=== PATIENT | female | born 1995 | race Hispanic/Latino ===

== ENCOUNTER 2018-02-05 16:34 | Emergency (ER) | payer SELFPAY ==
[2018-02-05 17:05] LABS: Bilirubin Negative (Negative); Blood, Urine Negative (Negative); Clarity CLOUDY (Clear); Glucose, Urine (Dipstick) Negative (Negative); Leukocyte Small (Negative); Nitrite Negative (Negative); Protein, Urine (Dipstick) Negative (Neg-Trace); Specific Gravity, Urine 1.031 (1.002-1.036)
[2018-02-05 17:06] LABS: Bacteria/HPF 2+ HPF (None Seen); Pathc Cast-AUWi Flag 1.88 (0-2.49)
[2018-02-05 17:08] LABS: Pregnancy Test - Urine (BHCG) POSITIVE (Negative); Pregu Control Background? CLEAR/WHITE (CLR/WHITE); Pregu Control Bar Appear? YES (CONTROL BAR); Specific Gravity 1.031 (1.002-1.036)
[2018-02-05 17:18] LABS: Hyaline Casts/LPF 0-3 HYALINE CAST LPF (0-3 Hyaline); RBC/HPF None Seen HPF (0-3)
[2018-02-05 17:36] LABS: #Lymphocytes 1.6 thou/uL (1.20-3.40); #Monocytes 0.5 thou/uL (0.11-0.59); #Neutrophils 8.4 thou/uL (1.40-6.50); %Basophils 0.3 % (0.0-1.0); %Eosinophils 0.4 % (0.0-10.0); %Lymphocytes 15.4 % (28.0-48.0); %Monocytes 4.8 % (0.0-4.0); %Neutrophils 79.1 % (31.0-61.0); Hemoglobin 12.9 g/dL (12.0-16.0); Mean Corpuscular HGB CONC 34.3 g/dL (32.0-36.0); Mean Corpuscular Hemoglobin 28.5 pg (25.0-35.0); Mean Platelet Volume 7.8 fL (7.4-10.4); Platelet Count 227 thou/uL (130-400); RBC Distribution Width 13.6 % (11.5-14.5); Red Blood Cell (RBC) Count 4.54 mill/uL (4.00-5.20); White Blood Cell (WBC) Count 10.6 thou/uL (4.8-10.8)
[2018-02-05 17:57] LABS: ALT (SGPT) 11 U/L (8-55); AST (SGOT) 10 U/L (5-34); Albumin 4.2 g/dL (3.5-5.0); Alkaline Phosphatase 77 U/L (40-150); Anion Gap 9 mmol/L (10-20); BUN (Urea Nitrogen) 9 mg/dL (7.0-18.7); Bilirubin, Total 0.4 mg/dL (0.2-1.2); Calc. Creatinine Clearance 0 mL/min (70-130); Calcium 9.5 mg/dL (7.8-10.44); Carbon Dioxide 25 mmol/L (22-29); Chloride 106 mmol/L (98-107); Estimated GFR-MDRD Greater than 90; Globulin 3.1 g/dL (2.4-3.5); Glucose 86 mg/dL (70-105); Lipase 11 U/L (8-78); Potassium 3.9 mmol/L (3.5-5.1); Protein, Total 7.3 g/dL (6.0-8.3); Sodium 136 mmol/L (136-145)
--- NOTE | 2018-02-05 19:23 | ULT ---
OBSTETRIC SONOGRAM TRANSABDOMINAL IMAGING WITH DUPLEX EVALUATION 02/05/18 HISTORY: Pelvic pain. early . FINDINGS: The urinary bladder is unremarkable. Uterus measures 9.7 cm and contains a gestational sac. Heart mot ion is demonstrated at 127 beats per minute. Measurements correlate with 7 weeks, 0 days gestational age. No free fluid within the pelvis. Each ovary is 3.3 cm in length and has a normal appearance with good color and spectral doppler flow. IMPRESSION: Single viable intrauterine gestation. Estimated gestational age of 7 weeks, 0 days. No evidence of co mplication. POS: [facility]
== END 2018-02-05 20:30 | disposition home or self-care (01) ==
LOC: ERS 16:34
DX: O99.89 Other specified diseases and conditions complicating pregnancy, childbirth and the puerperium (principal); O99.511 Diseases of the respiratory system complicating pregnancy, first trimester; F17.210 Nicotine dependence, cigarettes, uncomplicated; O99.331 Smoking (tobacco) complicating pregnancy, first trimester; J45.909 Unspecified asthma, uncomplicated; Z3A.01 Less than 8 weeks gestation of pregnancy
CPT/HCPCS: 36415; 76856; 80053; 81003; 81015; 81025; 83690; 84702; 85025; 87086; 93976

== ENCOUNTER 2018-06-01 20:06 | Day surgery (SDC) | payer OTHER ==
[2018-06-01 21:00] VITALS: BMI 44.4
--- NOTE | 2018-06-01 22:31 | PDOC.FPROB ---
FMR OB H&P: HPI - History of Present Illness Chief Complaint: No movement History of Present Illness: This is a 23 yo at 24.0 wks by LMP c/w 11wk US (SANGITA 09/22/18) who presents with a cc of lack of baby moving. She states this has been going on for 2 days. She tried lying down to feel the baby move but this did not help. She does report movement prior to this episode. She also reports falling in the shower earlier today and landing on her abdomen. She denies vaginal bleeding or discharge but does report some fluid in her panties today. She reports this being clear and small in amount. She denies dysuria or vaginal itching. FMR OB H&P: Current - Care : 1 Para: 0 Gestational age: 24.0 Due date: 09/22/18 Dating Criteria: LMP/11wk US - OB Labs Blood type: unknown RH: unknown Antibody Screen: unknown HIV: unknown RPR: unknown HepBsAg: unknown Quad screen: unknown Gonorrhea: unknown Chlamydia: unknown GBS: unknown FMR OB H&P: History - Past Medical History PMH: none - OB History OB History: none - Surgical History Sx History: none - Social History Social History: Denies MARY FMR OB H&P: Medications - Current Home Medications: Medication Instructions Recorded Confirmed Type Vits96/Iron Fum/Folic 1 tab PO DAILY 06/01/18 06/01/18 History [ Tablet] Allergies/Adverse Reactions: Allergies Allergy/AdvReac Type Severity Reaction Status Date / Time No Known Allergies Allergy Unverified 06/01/18 20:54 FMR OB H&P: ROS - Review of Systems General: denies: fever/chills, weight/appetite/sleep changes Eyes: denies: eye pain, vision changes ENT: denies: nasal congestion, rhinorrhea Cardiovascular: denies: chest pain, palpitation Gastrointestinal: denies: abdominal pain, indigestion, bloating Genitourinary (Female): denies: incontinence, dysuria Musculoskeletal: denies: pain, stiffness, tenderness Neurologic: denies: numbness, syncope Integumentary: denies: itching, rash Breast: denies: lumps, bumps, pain/tenderness Psychological: denies: depression, anxiety FMR OB H&P: Vital Signs - Heart Tones Baseline: 130 Variability: moderate Acceleration: present Deceleration: absent FMR OB H&P: Physical Exam - Physical Exam General: NAD, awake, alert and oriented HEENT: normocephalic and atraumatic, MMM Neck: trachea midline, no JVD Heart: RRR, normal S1/S2, no murmurs/rubs/gallops General: CTAB, no respiratory distress, good air movement Abdomen: soft, non-tender, bowel sound present, other (obese) Musculoskeletal: normal gait and station, pulses present Skin: no rash, good tugor FMR OB H&P: A/P Disposition: This is a 23 yo at 24.0 wks by LMP c/w 11wk US (SANGITA 09/22/18) Second trimester with concern of decreased movement -Monitor FHTs -VP3 due to slight discharge -No concern for LOF at this point Pt was monitored and was found to have regular movement picked up on NST. NST was reactive and reassuring. No contractions. Family was reassured by the babies movement. Family was given return precautions and instructed that they would receive a call if the VP3 came back positive. All questions were answered at the time of discharge. Discussion: Date/Time: 06/01/183 This H&P was discussed with Dr. Mccormack and Dr. Vee who agree with the above documentation and plan.
== END 2018-06-01 23:05 | disposition home or self-care (01) ==
LOC: L&D/OP 20:06
PROVIDERS: ATTEND Family Medicine
DX: O36.8120 Decreased fetal movements, second trimester, not applicable or unspecified (principal); O99.212 Obesity complicating pregnancy, second trimester; E66.9 Obesity, unspecified; Z3A.24 24 weeks gestation of pregnancy; Z79.899 Other long term (current) drug therapy
CPT/HCPCS: 87480; 87510; 87660; 99283

== ENCOUNTER 2018-07-10 22:55 | Day surgery (SDC) | payer OTHER ==
[2018-07-10 23:24] VITALS: BMI 47.2
--- NOTE | 2018-07-10 23:44 | PDOC.FPROB ---
FMR OB H&P: HPI - History of Present Illness Chief Complaint: Decreased movement Indentification: 23 yo @ 29.4 wk by 7.0 wk sono c/w LMP History of Present Illness: 23 yo @ 29.4 wk by 7.0 wk sono c/w LMP presents for decreased movement for the past 2 days. Denies LOF/vaginal bleeding/abnormal vaginal discharge/contractions. Pt was seen in may for a similar complaint. Pt reports occasional palpitations for the past couple of weeks. She also reports occasional LLQ sharp pains that are positional and last only a few minutes. Primary Care Physician: Francisco at [facility] FMR OB H&P: Current - Care : 1 Para: 0 Gestational age: 29.4 Due date: 09/22/18 Dating Criteria: 29.4 Course/Complications: Gonorrhea first trimester, s/p GHULAM Mar 2018 Morbid obesity anemia of excessive wt gain of 31 lb smoking during early Marijuana use - OB Labs Blood type: O RH: positive Antibody Screen: negative HIV: negative RPR: negative HepBsAg: negative Rubella: immune Gonorrhea: positive (+ in 1T, s/p GHULAM) GBS: unknown FMR OB H&P: History - Past Medical History PMH: pseudotumor cerebri asymptomatic asthma - OB History OB History: first - 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 History: Gonorrhea in 1T, s/p GHULAM - Surgical History Sx History: none - Social History Social History: Quit smoking in first trimester no alcohol use Marijuana +UDS in - Family History Family History: Mother with DM maternal aunt with down syndrome FMR OB H&P: Medications - Current Home Medications: Medication Instructions Recorded Confirmed Type Vits96/Iron Fum/Folic 1 tab PO DAILY 06/01/18 07/10/18 History [ Tablet] Allergies/Adverse Reactions: Allergies Allergy/AdvReac Type Severity Reaction Status Date / Time No Known Allergies Allergy Verified 07/10/18 23:26 FMR OB H&P: ROS - Review of Systems General: denies: fever/chills, weight/appetite/sleep changes Eyes: denies: eye pain, vision changes ENT: denies: nasal congestion, rhinorrhea, frequent nose bleed Cardiovascular: reports: palpitation. denies: chest pain, edema Respiratory: reports: cough. denies: congestion, shortness of breath Gastrointestinal: reports: abdominal pain. denies: bloating, cramping, nausea, vomiting, diarrhea, constipation, bright red blood Genitourinary (Female): denies: incontinence, dysuria, hematuria, vaginal discharge, vaginal pain, vaginal bleeding Musculoskeletal: denies: pain, tenderness Neurologic: denies: numbness, weakness Integumentary: denies: itching, rash FMR OB H&P: Vital Signs - Maternal Vital signs: 113/81, T 98.3 R 18 P 81 - Heart Tones Baseline: 130 (reactive and reassuring) Variability: moderate [place] contractions every: none FMR OB H&P: Physical Exam - Physical Exam General: NAD, awake, alert and oriented HEENT: normocephalic and atraumatic, PERRLA, EOMI, MMM, grossly normal hearing, oropharynx clear Neck: supple, trachea midline Chest: non-tender to palpation, no lesions Heart: normal S1/S2, no murmurs/rubs/gallops, pulses present, no edema, other ( Regular rate, irregular rhythm) General: CTAB, no respiratory distress, good air movement, no rales/rhonchi, no wheezing Abdomen: soft, gravid, non-tender, bowel sound present, no masses, other (obese) Musculoskeletal: normal gait and station, pulses present, FROM in all four extremities Neurological: cranial nerves II through XII intact, no focal deficit Skin: no rash, good tugor, capillary refill <2 seconds Lymphatic: no unusual bruising or bleeding, no purpura Psychiatric: intact recent and remote memory, good judgement and insight, normal mood and affect - Pelvic Exam Vulva: normal hair distribution, appropriate jadyn stage FMR OB H&P: Results - Imaging Imaging: EKG showed normal sinus rhythm with frequent PVCs FMR OB H&P: A/P - Problem List (1) Status: Acute (2) PVC's (premature ventricular contractions) Status: Acute Code(s): I49.3 - VENTRICULAR PREMATURE DEPOLARIZATION Discussion: Date/Time: 07/10/18 2344 23 yo @ 29.4 by 7.0 wk sono c/w LMP presents with concern for decreased movement Concern for decreased movement -FHTs reactive and reassuring -Decreased movement felt by mom likely 2/2 patient's excess weight -Patient reassured, no concern at this time -Follow up for routine care at the Clinic with Dr. Singh Frequent PVCs -Irregular heart beat -EKG showed NSR with frequent PVCs -TSH WNL -Encouraged patient to decrease caffeine intake if at all possible Obesity complicating -aware -Patient to follow with M Anemia of -Aware This H&P was discussed with Dr. Landis who agree with the above documentation and plan.
--- NOTE | 2018-07-13 17:26 | EKG ---
Test Reason : STAT Blood Pressure : / mmHG Vent. Rate : 094 BPM Atrial Rate : 094 BPM P-R Int : 152 ms QRS Dur : 074 ms QT Int : 386 ms P-R-T Axes : 061 046 022 degrees QTc Int : 482 ms Sinus rhythm with frequent Premature ventricular complexes Prolonged QT Abnormal ECG When compared with ECG of 04-AUG-2015 18:20, Premature ventricular complexes are now Present Vent. rate has increased BY 32 BPM QT has lengthened Confirmed by RENETTA GIRALDO, SYanick ([id number]) on 07/13/2018 5:26:36 PM Referred By: Thao BLISS Confirmed By:DR. Savanna JACKSON MD
== END 2018-07-11 00:15 | disposition home or self-care (01) ==
LOC: L&D/OP 22:55
PROVIDERS: ATTEND Obstetrics & Gynecology
DX: O36.8130 Decreased fetal movements, third trimester, not applicable or unspecified (principal); O99.013 Anemia complicating pregnancy, third trimester; O99.413 Diseases of the circulatory system complicating pregnancy, third trimester; I49.3 Ventricular premature depolarization; O99.213 Obesity complicating pregnancy, third trimester; E66.01 Morbid (severe) obesity due to excess calories; Z3A.29 29 weeks gestation of pregnancy; Z87.891 Personal history of nicotine dependence
CPT/HCPCS: 36415; 84443; 93005; 93010; 99282

== ENCOUNTER 2018-09-15 22:00 | Inpatient (IN) | payer MEDICAID, OTHER ==
[2018-09-15 23:29] LABS: Hemoglobin 12.3 g/dL (12.0-16.0); Mean Corpuscular Hemoglobin 27.3 pg (27.0-31.0); Mean Corpuscular Volume 82.7 fL (78.0-98.0); Platelet Count 192 thou/uL (130-400); RBC Distribution Width 14.1 % (11.5-14.5); Red Blood Cell (RBC) Count 4.49 mill/uL (4.20-5.40); White Blood Cell (WBC) Count 9.3 thou/uL (4.8-10.8)
[2018-09-15 23:31] VITALS: BMI 50.7
[2018-09-15] MEDS ORDERED: Misoprostol 100 MCG TAB ONE (23:55)
[2018-09-16 00:10] LABS: Syphilis Antibody Nonreactive (Nonreactive); Syphilis Antibody Index 0.04 S/CO (<1.00 Non-Reactive)
[2018-09-16 00:17] LABS: HBSAg Index 0.28 S/CO (0-0.99); Hep B Surf Ag Non-Reactive S/CO (NonReactive)
--- NOTE | 2018-09-16 00:38 | PDOC.LDHP ---
Labor and Delivery H&P Chief complaint: scheduled induction HPI: 23 G1 at 39.1 by LMP/7.0wk sono here for elective IOL. Denies CTX, VB, LOF. Endorses FM. Current gestational age (weeks): 39 (39.1) Grav: 1 Para: 0 Current medications: none Allergies/Adverse Reactions: Allergies Allergy/AdvReac Type Severity Reaction Status Date / Time No Known Allergies Allergy Verified 09/15/18 23:30 Social history: none - Physical Exam Vital signs reviewed and normal: yes General: NAD Heart: RRR Lungs: CTAB Abdomen: gravid FHT: category 1 (150/mod/accels) [place] contractions every: uterine irritability - Vaginal Exam cm dilated: 0 Effacement: 0% Station: -3 - OB Labs Blood type: O RH: positive Antibody Screen: negative HIV: negative RPR: negative HEPSAg: negative 1 hour GCT: negative GBS: negative Rubella: immune Additional Labs: gono + on 03/11/18 with GHULAM on 04/27/18 - Assessment L&D Assessment: elective induction at term - Plan Plan: admit to L&D, cervical ripening, labor augmentation if indicated -: 23 yo G1 at 39.1 by LMP/7.2wk sono here for IOL sIUP, elective IOL -cl//H, cytotec x1, will recheck in 3 hours -does not desire epidural at this time -admit to L&D Obesity -Will health counselor of lifestyle modification Anemia of -will check CBC after delivery Possible hx of asthma Hx of cannabis abuse -Pt denies, will order UDS Hx of Gono+ -s/p treatment w/ neg GHULAM 04/27/18 Hx of pseudotumor cerebri -MD aware Hx of tobacco abuse -quit in January -health counselor on cessation Discussed w/ Dr. De León Addendum - Attending - Attending Attestation Date/Time: 09/16/18 1044 I personally evaluated the patient and discussed the management with Dr. molina at time of admission last night. I agree with the History, Examination, Assessment and Plan documented above with any addition or exceptions noted below.
[2018-09-16] MEDS ORDERED: Lidocaine 1% (PF) 30 ML VIAL SC PRN (00:39)
[2018-09-16] MEDS ORDERED: NS / Oxytocin 40 units/1000ml 1,000 ML IV PRN (00:39)
[2018-09-16] MEDS ORDERED: Ondansetron PF 4 MG/2 ML Vial IVP PRN ×2 (00:39→22:55)
[2018-09-16] MEDS ORDERED: Promethazine HCl 25 MG/ML VIAL IM PRN ×2 (00:39→22:55)
[2018-09-16] MEDS: Misoprostol 100 MCG TAB VAG SCH ×6 (00:44→22:38)
[2018-09-16 02:20] LABS: Medtox Reader # READER 1
[2018-09-16 02:21] LABS: Amphetamine Not Detected (NotDetected); Barbiturates Screen Not Detected (NotDetected); Benzodiazepine Screen Not Detected (NotDetected); Cocaine Metabolite Screen Not Detected (NotDetected); Medtox Control Line Valid? VALID (VALID); Methadone Not Detected (NotDetected); Methamphetamine Not Detected (NotDetected); Opiate Screen Not Detected (NotDetected); Oxycodone Screen Not Detected (NotDetected); Phencyclidine (PCP) Not Detected (NotDetected); THC/Cannabinoid Screen Not Detected (NotDetected); Tricyclic Screen Not Detected (NotDetected)
[2018-09-16 02:36] LABS: HBSAg Index 0.31 S/CO (0-0.99); Hep B Surf Ag Non-Reactive S/CO (NonReactive)
[2018-09-16 05:48] LABS: Syphilis Antibody Nonreactive (Nonreactive); Syphilis Antibody Index 0.03 S/CO (<1.00 Non-Reactive)
--- NOTE | 2018-09-16 07:26 | PDOC.LDPN ---
Labor & Delivery Progress Note - Subjective Subjective: comfortable - Objective Vital signs reviewed and normal: yes General: NAD, resting Uterine fundus: non tender Dilation: 1 Effacement: 0% Station: -3 FHT: category 1 (unable to get consistent tracing) - Assessment (1) Term Code(s): Z34.80 - ENCOUNTER FOR SUPRVSN OF NORMAL , UNSP TRIMESTER Current Visit: Yes Status: Acute (2) Obesity Code(s): E66.9 - OBESITY, UNSPECIFIED Current Visit: Yes Status: Acute Plan: continue plan of care, labor augmentation -: 23 yo G1 at 39.1 by LMP/7.2wk sono here for IOL sIUP, elective IOL -//H, cytotec x2, will recheck in 3 hours -does not desire epidural at this time -SVE: /h @0700, will hold cytotec at this time so can get consistent tracing -FHT: inconsistent tracing, encouraged patient to lay on back in order to get accurate trace Obesity -Will chief counsel of lifestyle modification Anemia of -will check CBC after delivery Possible hx of asthma Hx of cannabis abuse -Pt denies, will order UDS Hx of Gono+ -s/p treatment w/ neg GHULAM 04/27/18 Hx of pseudotumor cerebri -MD aware Hx of tobacco abuse -quit in January -chief counsel on cessation
--- NOTE | 2018-09-16 07:43 | PDOC.LDPN ---
Labor & Delivery Progress Note - Subjective Subjective: comfortable - Objective Vital signs reviewed and normal: yes General: NAD Uterine fundus: non tender Dilation: 1 Effacement: 0% Station: -3 FHT: category 1 [place] contractions every: irregular - Assessment (1) Obesity Code(s): E66.9 - OBESITY, UNSPECIFIED Current Visit: Yes Status: Acute (2) Term Code(s): Z34.80 - ENCOUNTER FOR SUPRVSN OF NORMAL , UNSP TRIMESTER Current Visit: Yes Status: Acute Plan: continue plan of care, labor augmentation -: 23 yo G1 at 39.1 by LMP/7.2wk sono here for IOL sIUP, elective IOL - SVE: /h @1340, FHTs Cat 1, cytotec placed (x2 total) - Does not desire epidural at this time Obesity - Will associate professor of counseling of lifestyle modification Anemia of - Check CBC after delivery Possible hx of asthma Hx of cannabis abuse - UDS neg Hx of Gono+ - s/p treatment w/ neg GHULAM 04/27/18 Hx of pseudotumor cerebri Hx of tobacco abuse - Quit in January - 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
--- NOTE | 2018-09-16 11:45 | PDOC.LDPN ---
Labor & Delivery Progress Note - Subjective Subjective: comfortable - Objective Vital signs reviewed and normal: yes General: NAD Uterine fundus: non tender Dilation: 1 Effacement: 50% Station: -2 FHT: category 1 - Assessment (1) Obesity Code(s): E66.9 - OBESITY, UNSPECIFIED Current Visit: Yes Status: Acute (2) Term Code(s): Z34.80 - ENCOUNTER FOR SUPRVSN OF NORMAL , UNSP TRIMESTER Current Visit: Yes Status: Acute -: 23 yo G1 at 39.1 by LMP/7.2wk sono here for LivSHALINI TahminaLUCIA, elective IOL - SVE: /-2 @1130, FHTs Cat 1, cytotec placed (x3 total) - Continue serial cervical exams - Does not desire epidural at this time Obesity - Will herb counselor of lifestyle modification Anemia of - Check CBC after delivery Possible hx of asthma Hx of cannabis abuse - UDS neg Hx of Gono+ - s/p treatment w/ neg GHULAM 04/27/18 Hx of pseudotumor cerebri Hx of tobacco abuse - Quit in January - Attending Physician on cessation Addendum - Attending - Attending Attestation Date/Time: 09/16/18 0472 I personally evaluated the patient and discussed the management with Dr. Babcock I agree with the History, Examination, Assessment and Plan documented above with any addition or exceptions noted below. Called by RN to discuss indication for delivery as pt requesting to leave since things not progressing quickly. Discussed that this is an elective induction but that it was recommended by the MFM due to elevated BMI and risk of stillbirth. Pt verbalized understanding of this. She also expressed her frustration with being stuck in bed and being hungry. She is agreeable to stay in hospital. Will allow her to eat, shower, ambulate 4hrs after last cytotec administration and then continue with induction. Encouraged to try massage, different positions, heating pad for back pain. Will continue to monitor closely.
[2018-09-16 14:01] LABS: ALT (SGPT) Less than 7 U/L (8-55); AST (SGOT) 10 U/L (5-34); Albumin 3.1 g/dL (3.5-5.0); Alkaline Phosphatase 221 U/L (40-150); Anion Gap 13 mmol/L (10-20); BUN (Urea Nitrogen) 7 mg/dL (7.0-18.7); Bilirubin, Total 0.3 mg/dL (0.2-1.2); Calc. Creatinine Clearance 329 mL/min (70-130); Calcium 8.8 mg/dL (7.8-10.44); Carbon Dioxide 24 mmol/L (22-29); Chloride 107 mmol/L (98-107); Estimated GFR-MDRD Greater than 90; Globulin 2.8 g/dL (2.4-3.5); Glucose 68 mg/dL (70-105); Potassium 3.9 mmol/L (3.5-5.1); Protein, Total 5.9 g/dL (6.0-8.3); Sodium 140 mmol/L (136-145)
[2018-09-16] MEDS ORDERED: Ondansetron PF 4 MG/2 ML Vial ONE ×2 (14:57→21:30)
[2018-09-16] MEDS ORDERED: Dexamethasone 20 MG/5 ML VIAL ONE (14:57)
[2018-09-16] MEDS ORDERED: PHENYLEPHRINE-NS 100 MCG/ML 10 ML SYRINGE ONE ×2 (14:57→21:30)
[2018-09-16] MEDS ORDERED: Ketorolac Tromethamine 30 MG/ML VIAL ONE ×2 (14:57→21:30)
[2018-09-16 15:38] LABS: Creatinine, Urine 104.45 mg/dL (47-110)
--- NOTE | 2018-09-16 15:53 | PDOC.EVN ---
Event Note - Event Note Event Note: Strip reviewed, cat 1. Pt does have some elevated pressures; however recheck WNL. UA showed no proteinuria and CBC/CMP wnl. Denies headache, changes in vision, RUQ/epigastric pain. For now will allow pt to eat and shower with plan to continue to monitor pressures closely if pt has persistent severe range pressures, will plan for Mag administration. Recheck .
[2018-09-16] MEDS ORDERED: NS w/ Oxytocin 10 units 500 ML ONE (17:27)
[2018-09-16] MEDS ORDERED: NS w/ Oxytocin 10 units 500 ML IV SCH (17:30)
[2018-09-16] MEDS: Lactated Ringer's 1,000 ML IV SCH (19:00)
--- NOTE | 2018-09-16 19:13 | PDOC.OBLPN ---
FMR OB Labor PN: Subj - Interval History Hospital Day: 2 Chief Complaint: 23 yo G1 @ 39.1wks here for elective IOL Interval History: Comfortable in bed. Pt showered and ate. However, having rec. late decels. FMR OB Labor PN: Obj - Procedures Resuscitative measures: maternal IV fluids, maternal position change FMR OB Labor PN: Exam - Physical Exam General: NAD, awake, alert and oriented HEENT: normocephalic and atraumatic, PERRLA General: no respiratory distress Psychiatric: intact recent and remote memory - Pelvic Exam SVE: /-2 FMR OB Labor PN: Data - Labs Lab results: Laboratory Results - last 24 hr 09/15/18 09/15/18 09/15/18 23:08 23:08 23:08 WBC RBC Hgb Hct MCV MCH MCHC RDW Plt Count MPV Sodium Potassium Chloride Carbon Dioxide Anion Gap BUN Creatinine Estimated GFR (MDRD) Glucose Calcium Total Bilirubin AST ALT Alkaline Phosphatase Serum Total Protein Albumin Globulin Albumin/Globulin Ratio U Random Total Protein Urine Creatinine Urine Opiates Screen Ur Oxycodone Screen Urine Methadone Screen Ur Propoxyphene Screen Ur Barbiturates Screen Ur Tricyclics Screen Ur Phencyclidine Scrn Ur Amphetamines Screen U Methamphetamines Scrn U Benzodiazepines Scrn U Cocaine Metab Screen U Cannabinoids Screen Drug Screen Comment Syphilis IgG/IgM Ab Nonreactive Hep Bs Antigen Non-Reactive Blood Type O POSITIVE Antibody Screen NEGATIVE 09/15/18 09/16/18 09/16/18 23:08 00:20 00:20 WBC 9.3 RBC 4.49 Hgb 12.3 Hct 37.2 MCV 82.7 MCH 27.3 MCHC 33.0 RDW 14.1 Plt Count 192 MPV 9.0 Sodium Potassium Chloride Carbon Dioxide Anion Gap BUN Creatinine Estimated GFR (MDRD) Glucose Calcium Total Bilirubin AST ALT Alkaline Phosphatase Serum Total Protein Albumin Globulin Albumin/Globulin Ratio U Random Total Protein Urine Creatinine Urine Opiates Screen Not Detected Ur Oxycodone Screen Not Detected Urine Methadone Screen Not Detected Ur Propoxyphene Screen Not Detected Ur Barbiturates Screen Not Detected Ur Tricyclics Screen Not Detected Ur Phencyclidine Scrn Not Detected Ur Amphetamines Screen Not Detected U Methamphetamines Scrn Not Detected U Benzodiazepines Scrn Not Detected U Cocaine Metab Screen Not Detected U Cannabinoids Screen Not Detected Drug Screen Comment Syphilis IgG/IgM Ab Hep Bs Antigen Blood Type O POSITIVE Antibody Screen 09/16/18 09/16/18 09/16/18 00:20 01:44 01:44 WBC RBC Hgb Hct MCV MCH MCHC RDW Plt Count MPV Sodium Potassium Chloride Carbon Dioxide Anion Gap BUN Creatinine Estimated GFR (MDRD) Glucose Calcium Total Bilirubin AST ALT Alkaline Phosphatase Serum Total Protein Albumin Globulin Albumin/Globulin Ratio U Random Total Protein 12 Urine Creatinine 104.45 Urine Opiates Screen Ur Oxycodone Screen Urine Methadone Screen Ur Propoxyphene Screen Ur Barbiturates Screen Ur Tricyclics Screen Ur Phencyclidine Scrn Ur Amphetamines Screen U Methamphetamines Scrn U Benzodiazepines Scrn U Cocaine Metab Screen U Cannabinoids Screen Drug Screen Comment Syphilis IgG/IgM Ab Nonreactive Hep Bs Antigen Non-Reactive Blood Type Antibody Screen 09/16/18 11:54 WBC RBC Hgb Hct MCV MCH MCHC RDW Plt Count MPV Sodium 140 Potassium 3.9 Chloride 107 Carbon Dioxide 24 Anion Gap 13 BUN 7 Creatinine 0.59 L Estimated GFR (MDRD) Greater than 90 Glucose 68 L Calcium 8.8 Total Bilirubin 0.3 AST 10 ALT Less than 7 L Alkaline Phosphatase 221 H Serum Total Protein 5.9 L Albumin 3.1 L Globulin 2.8 Albumin/Globulin Ratio 1.1 L U Random Total Protein Urine Creatinine Urine Opiates Screen Ur Oxycodone Screen Urine Methadone Screen Ur Propoxyphene Screen Ur Barbiturates Screen Ur Tricyclics Screen Ur Phencyclidine Scrn Ur Amphetamines Screen U Methamphetamines Scrn U Benzodiazepines Scrn U Cocaine Metab Screen U Cannabinoids Screen Drug Screen Comment Syphilis IgG/IgM Ab Hep Bs Antigen Blood Type Antibody Screen FMR OB Labor PN: A/P - Problem List (1) Term Current Visit: Yes Status: Acute Code(s): Z34.80 - ENCOUNTER FOR SUPRVSN OF NORMAL , UNSP TRIMESTER (2) Obesity Current Visit: Yes Status: Acute Code(s): E66.9 - OBESITY, UNSPECIFIED (3) Hx of cannabis abuse Current Visit: Yes Status: Acute Code(s): Z87.898 - PERSONAL HISTORY OF OTHER SPECIFIED CONDITIONS (4) History of tobacco abuse Current Visit: Yes Status: Acute Code(s): Z87.891 - PERSONAL HISTORY OF NICOTINE DEPENDENCE (5) Anemia affecting in third trimester Current Visit: Yes Status: Acute Code(s): O99.013 - ANEMIA COMPLICATING , THIRD TRIMESTER (6) Pseudotumor cerebri Current Visit: Yes Status: Acute Code(s): G93.2 - BENIGN INTRACRANIAL HYPERTENSION (7) Hx of gonorrhea Current Visit: Yes Status: Acute Code(s): Z86.19 - PERSONAL HISTORY OF OTHER INFECTIOUS AND PARASITIC DISEASES (8) History of asthma Current Visit: Yes Status: Acute Code(s): Z87.09 - PERSONAL HISTORY OF OTHER DISEASES OF THE RESPIRATORY SYSTEM Discussion: Date/Time: 09/16/181905 23 yo G1 at 39.1 by LMP/7.2wk sono here for Indra Weston, elective IOL - SVE: /-2 @1800, FHTs Cat 2 (recurrent late decels), will continue positional changes and resuscitative measures, however if this tracing continues , discussed with pt the liklihood of a csection. Risks, benefits, indications, and alternatives discussed. Pt agreeable to plan. 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 De León who agrees with the above documentation and plan. CODE: full Addendum - Attending - Attending Attestation Date/Time: 09/16/181922 I personally evaluated the patient and discussed the management with Dr. Granger. I agree with the History, Examination, Assessment and Plan documented above with any addition or exceptions noted below. One clarification, last dose of cytotec was several hours ago. WHile we had hoped to start pitocin, it has been held due to Cat II tracing.
[2018-09-16] MEDS ORDERED: Bicitra 30 ML UDCUP ONE (20:26)
--- NOTE | 2018-09-16 20:39 | PDOC.EVN ---
Event Note - Event Note Event Note: 23 yo G1 at 39.1 by LMP/7.2wk xandero here for eIOL, now with a persistent cat 2 strip due to recurrent late decelerations. section risks, benefits, indications, and alternatives discussed with the patient. We recommended to proceed with a CS and pt was agreeable.
[2018-09-16] MEDS ORDERED: Azithromycin 500 MG in Sodium Chloride 0.9% 250 ML 250 ML IVPB SCH (20:45)
[2018-09-16] MEDS ORDERED: Bicitra 30 ML UDCUP PO SCH (20:45)
[2018-09-16] MEDS ORDERED: CEFAZOLIN 3 GM in Premix Bag 1 BAG IVPB SCH (20:45)
[2018-09-16] MEDS ORDERED: CEFAZOLIN 3 GM in Sodium Chloride 0.9% 100 ML IVPB SCH (21:00)
[2018-09-16] MEDS ORDERED: MORPHINE 5 MG/10 ML PF VIAL ONE (21:15)
[2018-09-16] MEDS ORDERED: Oxytocin 10 UNITS/ML VIAL ONE (21:30)
[2018-09-16] MEDS ORDERED: Dexamethasone 4 mg/ml Vial ONE (21:30)
[2018-09-16] MEDS ORDERED: Carboprost 250 MCG/ML AMP ONE (21:53)
[2018-09-16] MEDS ORDERED: Ketorolac Tromethamine 30 MG/ML VIAL IVP PRN (22:55)
[2018-09-16] MEDS ORDERED: HYDROmorphone 2 MG/ML VIAL SLOW IVP PRN (22:55)
[2018-09-16] MEDS ORDERED: L&D-Morphine 4 MG/ML VIAL SLOW IVP PRN (22:55)
[2018-09-16] MEDS ORDERED: diphenhydrAMINE 50 MG/ML VIAL IVP PRN (22:55)
[2018-09-16] MEDS ORDERED: Meperidine HCl/PF 25 MG/ML VIAL SLOW IVP PRN (22:55)
[2018-09-16] MEDS ORDERED: Naloxone HCl 0.4 mg/ml Vial IVP PRN ×2 (22:55)
[2018-09-16] MEDS ORDERED: Naloxone HCl 0.4 mg/ml Vial IV PRN (22:55)
[2018-09-16] MEDS ORDERED: Ondansetron HCl/PF 4 MG/2 ML Vial IVP PRN (22:55)
[2018-09-16] MEDS ORDERED: Eucerin (Mineral Oil/Petrolatum,White) 30 gm Jar TOP PRN (22:55)
[2018-09-16] MEDS ORDERED: Promethazine HCl 25 MG SUPP PR PRN (22:55)
[2018-09-16] MEDS ORDERED: Communication Order-Pharmacy FS SCH (23:00)
[2018-09-16] MEDS ORDERED: Ketorolac Tromethamine 30 MG/ML VIAL IVP SCH (23:00)
[2018-09-17] MEDS: Lactated Ringer's 1,000 ML IV SCH (00:06)
--- NOTE | 2018-09-17 00:26 | PDOC.OPDEL ---
OB Operative/Delivery Note Pre-Delivery Diagnosis: elective induction Procedure/Post Delivery Dx: primary low transverse CS Weeks gestation: 39 (39.1) Anesthesia: spinal - Findings a Sex: male - 1 min: 8 - 5 min: 9 - Additional Findings/Plan Placenta delivered: manual removal findings: low transverse hysterotomy with extension (right, maternal) Estimated blood loss: 1380 Compilations/Other Findings: Date of Procedure: 09/16/18 Resident Surgeon: Stacia Steven Rand Tacker Surgeon: Aayush Graves Attending Surgeon: Melinda De León Procedure: Primary low transverse caesarean section Preoperative Diagnosis: 1)Term intrauterine 2)Obesity 3) Persistent Cat II FHT Postoperative Diagnosis: 1)Term intrauterine , delivered 2)Obesity 3) Persistent Cat II FHT 4) Uterine atony Anesthesia: spinal Indications: The patient is a 23 year old G1 female at 39.1wks who presented for an elective IOL, who had a persistent category 2 strip with recurrent late decelerations, and was taken to the OR for a primary low transverse section. Procedure in Detail: After risks, benefits, and alternatives were explained to the patient, she gave informed consent. Pre-operative antibiotics included Cefazolin 3 gram IV and Azithromicin 500mg IV. The patient was taken to the operating room and spinal anesthesia was initiated. She was placed in the supine position with a left tilt and prepped and draped in usual sterile fashion. A Pfannenstiel incision was made with a scalpel and carried down to the level of the fascia which was sharply nicked. The fascial cut was extended bluntly first then bilaterally with Umanzor sissors. The inferior and superior edges of the cut fascial edges were elevated with Annabelle clamps and the underlying rectus muscles were sharply and bluntly dissected free. The recti were divided digitally and retracted manually. The peritoneum was entered bluntly and retracted manually. Bethel-O retractor was placed. A low transverse score was made with the scalpel and the uterus was entered in the midline with the scalpel. Clear fluid was seen. The hysterotomy was extended manually. The infant was noted to be vertex and was easily delivered by fundal pressure. Mouth and nares were bulb suctioned. Cord clamped and cut and grossly normal male was handed to waiting nurse. Cord blood was obtained. Placenta was manually extracted, found to be intact with 3 vessel cord and discarded. The endometrium was curetted with a dry lap. Uterine atony noted. Pitocin infusion was started per routine adn hemabate was given IM. This along with repair of hysterotomy resulted in firming of the uterus. The uterus was closed with a running locking #1 Monocryl suture. There was an extension of the right hysterotomy, which was closed with a #1 Monocryl suture. Additionally, a #1 Monocryl suture was used to sew a figure of eight stich on the hysterotomy, after which, good hemostasis was noted. The uterus was examined and the hysterotomy was again noted to be hemostatic. Ther peritoneum was closed with a 3-0 Vicryl suture. The fascia was closed with a running non-locking 0-Vicryl suture. The subcutaneous tissue was irrigated and there were no bleeders. The subcutaneous tissue was approximated using a 3-0 Chromic suture using 3 simple interrupted stitches. The skin was approximated with karina and a wound vac was applied. All counts were correct. The patient tolerated the procedure well and was taken to the recovery room in stable condition. Estimated Blood Loss: 1380ml Complications: None Findings: Grossly normal male infant with Apgars of 8 & 9. Grossly normal placenta with 3 vessel cord discarded. Drains: Johns to gravity draining clear urine Post delivery plan: recovery in LICU
[2018-09-17] MEDS ORDERED: HYDROcodone/Acetaminophen 5/325 mg Tablet PO PRN ×3 (00:44→11:00)
[2018-09-17] MEDS ORDERED: diphenhydrAMINE 25 MG CAP PO PRN (00:44)
[2018-09-17] MEDS ORDERED: Bisacodyl 10 MG SUPP PR PRN (00:44)
[2018-09-17] MEDS ORDERED: NS / Oxytocin 40 units/1000ml 1,000 ML IV SCH (01:00)
[2018-09-17 06:44] LABS: Hemoglobin 11.7 g/dL (12.0-16.0); Mean Corpuscular HGB CONC 34.5 g/dL (32.0-36.0); Mean Corpuscular Hemoglobin 28.5 pg (27.0-31.0); Mean Corpuscular Volume 82.4 fL (78.0-98.0); Mean Platelet Volume 9.3 fL (7.4-10.4); Platelet Count 176 thou/uL (130-400); White Blood Cell (WBC) Count 14.2 thou/uL (4.8-10.8)
--- NOTE | 2018-09-17 07:27 | PDOC.PP ---
Post Progress Note Post Day #: 1 Subjective: Slept well. Pain controlled. King still in place. Has not ambulated. Tolerating normal diet. Minimal bleeding. Passing flatus. PO intake tolerated: yes Flatus: yes Ambulation: no Vital Signs (12 hours) Temp Pulse Resp BP Pulse Ox 09/17/18 03:30 98.3 F 66 18 120/59 L 09/17/18 02:20 97.7 F 60 20 134/63 09/17/18 01:20 98.2 F 66 20 134/82 97 Weight Weight 138.346 kg - Physical Examination General: NAD Cardiovascular: no m/r/g, RRR Respiratory: clear to auscultation bilaterally Abdominal: + bowel sounds, lochia (minimal), appropriately TTP Skin: CS incision dry & intact (wound vac in place) Neurological: no gross focal deficits Psychiatric: A&Ox3, normal affect Result Diagrams: 09/17/18 06:28 09/16/18 11:54 Additional Labs: Post Labs Blood Type O POSITIVE 09/16/18 00:20 Hep Bs Antigen Non-Reactive S/CO (NonReactive) 09/16/18 01:44 (1) Term Code(s): Z34.80 - ENCOUNTER FOR SUPRVSN OF NORMAL , UNSP TRIMESTER Status: Acute (2) Obesity Code(s): E66.9 - OBESITY, UNSPECIFIED Status: Acute (3) Hx of cannabis abuse Code(s): Z87.898 - PERSONAL HISTORY OF OTHER SPECIFIED CONDITIONS Status: Acute (4) History of tobacco abuse Code(s): Z87.891 - PERSONAL HISTORY OF NICOTINE DEPENDENCE Status: Acute (5) Anemia affecting in third trimester Code(s): O99.013 - ANEMIA COMPLICATING , THIRD TRIMESTER Status: Acute (6) Pseudotumor cerebri Code(s): G93.2 - BENIGN INTRACRANIAL HYPERTENSION Status: Acute (7) Hx of gonorrhea Code(s): Z86.19 - PERSONAL HISTORY OF OTHER INFECTIOUS AND PARASITIC DISEASES Status: Acute (8) History of asthma Code(s): Z87.09 - PERSONAL HISTORY OF OTHER DISEASES OF THE RESPIRATORY SYSTEM Status: Acute - Assessment/Plan 23 yo G1 at 39.1 by LMP/7.2wk sono here for eIOL, s/o primary LTCS 2/2 persistent cat 2 strip @ 2150 on 09/16. POD #1 sIUP, delivered -primary LTCS -wound vac in place -pph of 1380 s/p pit and hemabate -minimal bleeding this morning -king in place, plan to dc and encourage ambulation after that -pt is tolerated a normal diet, passing flatus, mild pain at side of incision -continue routine pp care -ibuprofen 800mg q8h no, norco prn breakthrough pain -encouraged bfeeding, will have system consultant come by Obesity -aware Anemia of - aware, appropriate drop in H/H Possible hx of asthma Hx of cannabis abuse - UDS neg Hx of Gono+ - s/p treatment w/ neg GHULAM 04/27/18 Hx of pseudotumor cerebri- -aware Hx of tobacco abuse - Quit in January - 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 Singh I agree with the History, Examination, Assessment and Plan documented above with any addition or exceptions noted below.
[2018-09-17] MEDS: Enoxaparin Sodium 40 MG/0.4 ML SYRINGE SC SCH (08:47)
[2018-09-17] MEDS: Docusate Calcium (SURFAK) 240 MG CAP PO SCH ×2 (08:47→22:28)
[2018-09-17] MEDS ORDERED: Adacel (T-DAP) 0.5 ML SYRINGE IM ONE (09:00)
[2018-09-17] MEDS ORDERED: Prenatal Vitamin 1 TAB PO SCH (09:00)
[2018-09-17] MEDS: Ibuprofen 800 MG TAB PO SCH ×2 (14:45→22:28)
[2018-09-18] MEDS: Ibuprofen 800 MG TAB PO SCH ×3 (06:36→21:11)
--- NOTE | 2018-09-18 08:03 | PDOC.PP ---
Post Progress Note Post Day #: 2 Subjective: 23 yo G1-->P1 s/p primary LTCS. Doing well. Voiding/stooling/ambulating. Tolerating normal diet. Mild pain this am. Wound vac in place. No complaints otherwise. PO intake tolerated: yes Flatus: yes Ambulation: yes Vital Signs (12 hours) Temp Pulse Resp BP Pulse Ox 09/18/18 07:34 98.7 F 74 20 128/61 97 Weight Weight 138.346 kg - Physical Examination General: NAD Cardiovascular: no m/r/g, RRR Respiratory: clear to auscultation bilaterally Abdominal: + bowel sounds, lochia (minimal) Skin: CS incision dry & intact (wound vac in place) Psychiatric: A&Ox3, normal affect Result Diagrams: 09/17/18 06:28 09/16/18 11:54 Additional Labs: Post Labs Blood Type O POSITIVE 09/16/18 00:20 Hep Bs Antigen Non-Reactive S/CO (NonReactive) 09/16/18 01:44 (1) Term Code(s): Z34.80 - ENCOUNTER FOR SUPRVSN OF NORMAL , UNSP TRIMESTER Status: Acute (2) Obesity Code(s): E66.9 - OBESITY, UNSPECIFIED Status: Acute (3) Hx of cannabis abuse Code(s): Z87.898 - PERSONAL HISTORY OF OTHER SPECIFIED CONDITIONS Status: Acute (4) History of tobacco abuse Code(s): Z87.891 - PERSONAL HISTORY OF NICOTINE DEPENDENCE Status: Acute (5) Anemia affecting in third trimester Code(s): O99.013 - ANEMIA COMPLICATING , THIRD TRIMESTER Status: Acute (6) Pseudotumor cerebri Code(s): G93.2 - BENIGN INTRACRANIAL HYPERTENSION Status: Acute (7) Hx of gonorrhea Code(s): Z86.19 - PERSONAL HISTORY OF OTHER INFECTIOUS AND PARASITIC DISEASES Status: Acute (8) History of asthma Code(s): Z87.09 - PERSONAL HISTORY OF OTHER DISEASES OF THE RESPIRATORY SYSTEM Status: Acute - Assessment/Plan 23 yo G1 at 39.1 by LMP/7.2wk sono here for eIOL, s/o primary LTCS 2/2 persistent cat 2 strip @ 2150 on 09/16. 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 Singh I agree with the History, Examination, Assessment and Plan documented above with any addition or exceptions noted below. Stable POD # 1 s/p PLTCS. Pain controlled. Pt ambulating and meeting appropriate postoperative milestones. Likely d/c to home tomorrow.
[2018-09-18] MEDS: Enoxaparin Sodium 40 MG/0.4 ML SYRINGE SC SCH (08:46)
[2018-09-18] MEDS: Docusate Calcium (SURFAK) 240 MG CAP PO SCH ×2 (08:48→21:12)
--- NOTE | 2018-09-19 07:57 | PDOC.PP ---
Post Progress Note Post Day #: 3 Subjective: Pt doing well. Endorses mild pain. No other complaints. Wants to go home today. PO intake tolerated: yes Flatus: yes Ambulation: yes Vital Signs (12 hours) Temp Pulse Resp BP BP Pulse Ox 09/19/18 00:15 98.1 F 84 17 123/58 L 09/18/18 20:00 98.2 F 88 18 147/77 H 99 Weight Weight 138.346 kg - Physical Examination General: NAD Cardiovascular: no m/r/g, RRR Respiratory: clear to auscultation bilaterally, non-labored breathing Abdominal: + bowel sounds (hypoactive), lochia (minimal), appropriately TTP Skin: CS incision dry & intact (wound vac in place, day 3) Neurological: no gross focal deficits Psychiatric: A&Ox3, normal affect Result Diagrams: 09/17/18 06:28 09/16/18 11:54 Additional Labs: Post Labs Blood Type O POSITIVE 09/16/18 00:20 Hep Bs Antigen Non-Reactive S/CO (NonReactive) 09/16/18 01:44 (1) Term Code(s): Z34.80 - ENCOUNTER FOR SUPRVSN OF NORMAL , UNSP TRIMESTER Status: Acute (2) Obesity Code(s): E66.9 - OBESITY, UNSPECIFIED Status: Acute (3) Hx of cannabis abuse Code(s): Z87.898 - PERSONAL HISTORY OF OTHER SPECIFIED CONDITIONS Status: Acute (4) History of tobacco abuse Code(s): Z87.891 - PERSONAL HISTORY OF NICOTINE DEPENDENCE Status: Acute (5) Anemia affecting in third trimester Code(s): O99.013 - ANEMIA COMPLICATING , THIRD TRIMESTER Status: Acute (6) Pseudotumor cerebri Code(s): G93.2 - BENIGN INTRACRANIAL HYPERTENSION Status: Acute (7) Hx of gonorrhea Code(s): Z86.19 - PERSONAL HISTORY OF OTHER INFECTIOUS AND PARASITIC DISEASES Status: Acute (8) History of asthma Code(s): Z87.09 - PERSONAL HISTORY OF OTHER DISEASES OF THE RESPIRATORY SYSTEM Status: Acute - Assessment/Plan 23 yo G1 at 39.1 by LMP/7.2wk sono here for eIOL, s/o primary LTCS 2/2 persistent cat 2 strip @ 2150 on 09/16. POD #3 sIUP, delivered -primary LTCS -wound vac in place, POD3, to be removed POD7 -pph of 1380 s/p pit and hemabate -minimal bleeding during course -pt is tolerated a normal diet, passing flatus, stooling and voiding adequately , mild pain at side of incision, ambulating. 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 Maurizio Singh I agree with the History, Examination, Assessment and Plan documented above with any addition or exceptions noted below. Stable POD #3. Meeting appropriate milestones. Repeat BP taken while I was in the room was 143/71. Pt is to followup this week in [facility] for a BP check and removal of wound vac.
[2018-09-19] MEDS: Ibuprofen 800 MG TAB PO SCH (08:02)
[2018-09-19] MEDS: Enoxaparin Sodium 40 MG/0.4 ML SYRINGE SC SCH (08:03)
--- NOTE | 2018-09-19 08:17 | PDOC.EVN ---
Event Note - Event Note Event Note: Most recent bp was 153/70. Nurse to recheck bp in two hours. Since pressures not in severe range, will will recheck in two hours and likely dc home with close follow-up early next week to have wound vac removed and for a bp check. Pt agreeable to taking lovenox at home for the next two weeks.
[2018-09-19 08:34] VITALS: TEMP 98.2
[2018-09-19 09:49] VITALS: BP 143/71
== END 2018-09-19 12:45 | disposition home or self-care (01) | DRG 788 ==
LOC: L&D 22:18 → 3SW 09-17 01:48
PROVIDERS: ADMIT Family Medicine; ATTEND Family Medicine
PROC: 10D00Z1 Extraction of Products of Conception, Low, Open Approach (ICD-10-PCS; principal; 2018-09-16)
PROC: 3E0P7VZ Introduction of Hormone into Female Reproductive, Via Natural or Artificial Opening (ICD-10-PCS; 2018-09-16)
DX: O99.214 Obesity complicating childbirth (principal); E66.9 Obesity, unspecified; O99.02 Anemia complicating childbirth; D64.9 Anemia, unspecified; R03.0 Elevated blood-pressure reading, without diagnosis of hypertension; G93.2 Benign intracranial hypertension; O76 Abnormality in fetal heart rate and rhythm complicating labor and delivery; O72.1 Other immediate postpartum hemorrhage; Z87.09 Personal history of other diseases of the respiratory system; Z87.891 Personal history of nicotine dependence; Z37.0 Single live birth; Z3A.39 39 weeks gestation of pregnancy; Z86.19 Personal history of other infectious and parasitic diseases
CPT/HCPCS: 36415; 51702; 80053; 80306; 82570; 84156; 85027; 86780; 86850; 86900; 86901; 87340; 88307; J0456; J0690; J1100; J1200; J1650; J1885; J2270; J2405; J2590; J3490; J7050

== ENCOUNTER 2021-03-09 10:54 | Emergency (ER) | payer MEDICAID, SELFPAY ==
[~2021-03-09 10:54] MED LIST: Iopamidol-370 76% 500 ML 1 ML ONE
[2021-03-09] MEDS ORDERED: Ketorolac Tromethamine 30 MG/ML VIAL ONE ×2 (11:12→17:38)
[2021-03-09] MEDS ORDERED: Morphine 4 MG/ML VIAL ONE (11:12)
[2021-03-09] MEDS ORDERED: Ondansetron PF 4 MG/2 ML Vial ONE (11:12)
[2021-03-09 11:37] LABS: Mean Corpuscular HGB CONC 30.9 g/dL (32.0-36.0); Mean Corpuscular Hemoglobin 25.4 pg (27.0-31.0); Mean Corpuscular Volume 82.1 fL (78.0-98.0); Mean Platelet Volume 8.5 fL (7.4-10.4); Platelet Count 274 thou/uL (130-400); RBC Distribution Width 14.1 % (11.5-14.5); Red Blood Cell (RBC) Count 5.12 mill/uL (4.20-5.40); White Blood Cell (WBC) Count 21.5 thou/uL (4.8-10.8)
[2021-03-09 11:47] LABS: INR-International Normal Ratio 1.2; Prothrombin Time 14.9 sec (12.0-14.7)
[2021-03-09 11:48] LABS: PTT 40.1 sec (22.9-36.1)
[2021-03-09 11:57] LABS: ALT (SGPT) 11 U/L (8-55); AST (SGOT) 8 U/L (5-34); Albumin 4.2 g/dL (3.5-5.0); Alkaline Phosphatase 103 U/L (40-110); Anion Gap 13 mmol/L (10-20); BUN (Urea Nitrogen) 6 mg/dL (7.0-18.7); Bilirubin, Total 1.1 mg/dL (0.2-1.2); CK (CPK) 25 U/L (29-168); Calc. Creatinine Clearance 0 mL/min (70-130); Carbon Dioxide 26 mmol/L (22-29); Chloride 102 mmol/L (98-107); Globulin 3.1 g/dL (2.4-3.5); Glucose 105 mg/dL (70-105); Lipase 9 U/L (8-78); Potassium 3.6 mmol/L (3.5-5.1); Protein, Total 7.3 g/dL (6.0-8.3); Sodium 137 mmol/L (136-145)
[2021-03-09 12:01] LABS: BHCG - Serum Negative (NEGATIVE); Pregs Control Background? CLEAR/WHITE (CLR/WHITE); Pregs Control Bar Appear? YES (CONTROL BAR)
[2021-03-09 12:07] LABS: Band 9 % (5-11); Lymphocytes 8 % (21-51); MDiff Complete? YES; Monocytes 1 % (0-10); Neutrophil 81 % (42-75); Platelet Morphology Comment Appears Adequate; RBC Morphology Normal; Reactive Lymphocytes 1 % (0-10)
[2021-03-09 14:48] LABS: SARS-CoV-2 NAA Rapid Test Not Detected (NotDetected)
[2021-03-09] MEDS ORDERED: Acetaminophen 500 MG TAB ONE (16:59)
[2021-03-09 17:30] LABS: Bilirubin Negative (Negative); Blood, Urine Negative (Negative); Clarity Clear (Clear); Glucose, Urine (Dipstick) Normal (Negative); Ketone, Urine Negative (Negative); Leukocyte Negative Leu/uL (Negative); Nitrite Negative (Negative); Protein, Urine (Dipstick) 20 mg/dL (Neg-Trace); pH, Urine 6.5 (5.0-9.0)
[2021-03-09 17:33] LABS: Specific Gravity, Urine Greater than 1.060 (1.002-1.036)
== END 2021-03-09 19:15 | disposition home or self-care (01) ==
LOC: ERS 10:54
DX: N83.8 Other noninflammatory disorders of ovary, fallopian tube and broad ligament (principal); D72.829 Elevated white blood cell count, unspecified; F17.210 Nicotine dependence, cigarettes, uncomplicated; Z20.822 Contact with and (suspected) exposure to COVID-19
CPT/HCPCS: 51701; 74177; 80053; 81003; 82550; 83605; 83690; 84703; 85025; 85610; 85730; 87040; 87086; 96374; 96375; 96376; J1885; J2270; J2405; Q9967; U0002

== ENCOUNTER 2021-03-10 11:59 | Emergency (ER) | payer MEDICAID ==
[2021-03-10] MEDS ORDERED: Fentanyl 100 MCG/2 ML VIAL ONE (13:17)
[2021-03-10] MEDS ORDERED: Ketorolac Tromethamine 30 MG/ML VIAL ONE (13:18)
[2021-03-10 14:03] LABS: #Lymphocytes 1.6 thou/uL (1.20-3.40); #Monocytes 0.9 thou/uL (0.11-0.59); #Neutrophils 18.3 thou/uL (1.40-6.50); %Basophils 0.1 % (0.0-1.0); %Eosinophils 0.1 % (0.0-10.0); %Lymphocytes 7.8 % (21.0-51.0); %Monocytes 4.3 % (0.0-10.0); %Neutrophils 87.7 % (42.0-75.0); Hemoglobin 12.4 g/dL (12.0-16.0); Mean Corpuscular HGB CONC 31.4 g/dL (32.0-36.0); Mean Corpuscular Hemoglobin 25.8 pg (27.0-31.0); Mean Corpuscular Volume 82.1 fL (78.0-98.0); Mean Platelet Volume 8.5 fL (7.4-10.4); Platelet Count 268 thou/uL (130-400); RBC Distribution Width 13.9 % (11.5-14.5); White Blood Cell (WBC) Count 20.8 thou/uL (4.8-10.8)
[2021-03-10 14:26] LABS: ALT (SGPT) 8 U/L (8-55); AST (SGOT) 8 U/L (5-34); Alkaline Phosphatase 99 U/L (40-110); Anion Gap 11 mmol/L (10-20); BUN (Urea Nitrogen) 6 mg/dL (7.0-18.7); Bilirubin, Total 1.2 mg/dL (0.2-1.2); Calc. Creatinine Clearance 0 mL/min (70-130); Calcium 9.6 mg/dL (7.8-10.44); Carbon Dioxide 28 mmol/L (22-29); Chloride 102 mmol/L (98-107); Globulin 4.1 g/dL (2.4-3.5); Glucose 100 mg/dL (70-105); Lipase 5 U/L (8-78); Potassium 3.6 mmol/L (3.5-5.1); Protein, Total 8.1 g/dL (6.0-8.3); Sodium 137 mmol/L (136-145)
== END 2021-03-10 15:43 | disposition home or self-care (01) ==
LOC: ERS 11:59
DX: D72.829 Elevated white blood cell count, unspecified (principal); R07.9 Chest pain, unspecified; F17.210 Nicotine dependence, cigarettes, uncomplicated
CPT/HCPCS: 71275; 80053; 83690; 85025; 93005; 96374; 96375; J1885; J3010; Q9967

== ENCOUNTER 2021-11-21 20:20 | Emergency (ER) | payer OTHER ==
[2021-11-21] MEDS ORDERED: Acetaminophen 500 MG TAB ONE (20:38)
[2021-11-21] MEDS ORDERED: Ketorolac Tromethamine 30 MG/ML VIAL ONE (21:08)
[2021-11-21 21:10] LABS: #Lymphocytes 1.1 thou/uL (1.20-3.40); #Monocytes 0.8 thou/uL (0.11-0.59); #Neutrophils 10.6 thou/uL (1.40-6.50); %Basophils 0.1 % (0.0-1.0); %Eosinophils 0.1 % (0.0-10.0); %Lymphocytes 8.6 % (21.0-51.0); %Monocytes 6.2 % (0.0-10.0); Hemoglobin 11.9 g/dL (12.0-16.0); Mean Corpuscular HGB CONC 32.1 g/dL (32.0-36.0); Mean Corpuscular Hemoglobin 25.7 pg (27.0-31.0); Mean Platelet Volume 8.1 fL (7.4-10.4); Platelet Count 217 thou/uL (130-400); RBC Distribution Width 15.3 % (11.5-14.5); Red Blood Cell (RBC) Count 4.65 mill/uL (4.20-5.40); White Blood Cell (WBC) Count 12.5 thou/uL (4.8-10.8)
[2021-11-21 21:29] LABS: BHCG - Serum Negative (NEGATIVE); Pregs Control Background? CLEAR/WHITE (CLR/WHITE); Pregs Control Bar Appear? YES (CONTROL BAR)
[2021-11-21 21:30] LABS: ALT (SGPT) 11 U/L (8-55); AST (SGOT) 11 U/L (5-34); Albumin 3.8 g/dL (3.5-5.0); Alkaline Phosphatase 81 U/L (40-110); Anion Gap 12 mmol/L (10-20); BUN (Urea Nitrogen) 6 mg/dL (7.0-18.7); Bilirubin, Total 0.5 mg/dL (0.2-1.2); Calc. Creatinine Clearance 0 mL/min (70-130); Calcium 8.8 mg/dL (7.8-10.44); Carbon Dioxide 24 mmol/L (22-29); Chloride 105 mmol/L (98-107); Globulin 2.9 g/dL (2.4-3.5); Glucose 90 mg/dL (70-105); Potassium 3.6 mmol/L (3.5-5.1); Protein, Total 6.7 g/dL (6.0-8.3); Sodium 137 mmol/L (136-145)
== END 2021-11-22 00:44 | disposition home or self-care (01) ==
LOC: ERS 20:20
DX: J02.9 Acute pharyngitis, unspecified (principal); R07.9 Chest pain, unspecified; R59.9 Enlarged lymph nodes, unspecified; J45.909 Unspecified asthma, uncomplicated; F17.210 Nicotine dependence, cigarettes, uncomplicated; Z79.899 Other long term (current) drug therapy
CPT/HCPCS: 36415; 70491; 71045; 80053; 83605; 84484; 84703; 85025; 87081; 87430; 87804; 93005; 96372; J1885